=== PATIENT | female | born 1950 | race Caucasian/White ===

== ENCOUNTER 2018-07-15 14:49 | Emergency (ER) | payer MEDICARE ==
[~2018-07-15] VITALS: Ht 160 cm; Wt 77.5 kg
[2018-07-15 15:15] VITALS: BP 168/92
[2018-07-15] MEDS ORDERED: KETOROLAC 30 MG/1 ML ONE (15:38)
[2018-07-15] MEDS ORDERED: DIAZEPAM 5 MG TABLET ONE (15:38)
[2018-07-15] MEDS ORDERED: KETOROLAC 30 MG/1 ML IM ONE (16:00)
[2018-07-15] MEDS ORDERED: DIAZEPAM 5 MG TABLET PO ONE (16:00)
== END 2018-07-15 16:24 | disposition home or self-care (01) ==
LOC: ED 15:30
DX: S39.012A Strain of muscle, fascia and tendon of lower back, initial encounter (principal); W01.0XXA Fall on same level from slipping, tripping and stumbling without subsequent striking against object, initial encounter; Y93.89 Activity, other specified; Y92.89 Other specified places as the place of occurrence of the external cause; Y99.8 Other external cause status
CPT/HCPCS: 72110; 96372; 99284; J1885

== ENCOUNTER → 2018-07-26 | Outpatient (CLI) | payer MEDICARE | END | disposition home or self-care (01) | LOC: CFH 08:15 | PROVIDERS: ATTEND Family Medicine | DX: M48.061 Spinal stenosis, lumbar region without neurogenic claudication (principal); R22.2 Localized swelling, mass and lump, trunk | CPT/HCPCS: 72148 ==